=== PATIENT | female | born 2000 | race Two or more races ===

== ENCOUNTER 2021-06-01 15:43 | Emergency (ER) | payer SELFPAY ==
[~2021-06-01] VITALS: Ht 170.2 cm; Wt 81.6 kg
[2021-06-01 16:17] VITALS: BP 122/90
--- NOTE | 2021-06-01 16:30 | NUR ---
[id number] FOR URI SYMPTOMS. IN ROOM AIR AND DENIES SOB. NOTED DRY COUGH. RESPIRATION REGULAR AND UNLABORED. WILL CONTINUE TO MONITOR THE PATIENT.
--- NOTE | 2021-06-01 16:42 | NUR ---
covid swab done and sent to the lab
--- NOTE | 2021-06-01 17:19 | NUR ---
PCR COVID SWAB DONE AND SENT TO THE LAB
[2021-06-01] MEDS ORDERED: ACET-2605 PO (19:13)
--- NOTE | 2021-06-01 19:23 | NUR ---
Patient discharged to home in stable condition. Written and verbal after care instructions given. Patient verbalizes understanding of instruction.
== END 2021-06-01 19:23 | disposition home or self-care (01) ==
LOC: ER 16:00
DX: J06.9 Acute upper respiratory infection, unspecified (principal); Z20.822 Contact with and (suspected) exposure to COVID-19; J45.909 Unspecified asthma, uncomplicated
CPT/HCPCS: 71045; 84703; 87426; 99284; C9803 ×2; U0003